=== PATIENT | female | born 2000 | race Caucasian/White ===

== ENCOUNTER 2019-11-09 22:01 | Emergency (ER) | payer MEDICAID ==
[~2019-11-09] VITALS: Ht 165.1 cm; Wt 52.3 kg
[2019-11-09 22:13] VITALS: BP 112/57; Ht 165.1 cm; Wt 52.3 kg
[2019-11-09] MEDS ORDERED: ZOLOFT50 MG PO (22:15)
[2019-11-09 22:33] LABS: BASOPHILS 0.2 % (0-2); EOSINOPHILS 0.3 % (0-7); HEMATOCRIT 38.7 % (36.0-48.0); HEMOGLOBIN 12.6 g/dL (12-16); IMMATURE GRANULOCYTES 0.2 % (0-5); MCH 25.4 pg (26.0-34.0); MCHC 32.6 g/dL (31.0-37.0); MEAN PLATELET VOLUME 10.4 fL (7.4-10.4); MONOCYTES 7.4 % (2-11); NEUTROPHILS 77.9 % (40-80); PLATELET COUNT 259 10x3/uL (130-400); RBC 4.96 10x6/uL (4.00-5.40); RDW 15.7 % (11.5-14.5)
[2019-11-09 22:37] LABS: CALC OSMOLALITY 269 mosm/kg (275-300); CALCIUM 9.2 mg/dL (8.5-10.1); CARBON DIOXIDE 25.4 mmol/L (21.0-32.0); CHLORIDE - SERUM 101 mmol/L (98-107); GLUCOSE 106 mg/dL (74-106); POTASSIUM - SERUM 3.8 mmol/L (3.5-5.1); SODIUM 135 mmol/L (136-145); UREA NITROGEN 13 mg/dL (7-18); eGFR NON AFRICAN AMERICAN 75 mL/min (90-120)
[2019-11-09 22:38] LABS: BILIRUBIN NEGATIVE (NEGATIVE); GLUCOSE NEGATIVE (NEGATIVE); KETONE NEGATIVE (NEGATIVE); NITRITE NEGATIVE (NEGATIVE); SPECIFIC GRAVITY 1.025 (1.005-1.020); UROBILINOGEN NORMAL (NORMAL)
[2019-11-09 22:41] LABS: HCG URINE NEGATIVE (NEGATIVE)
[2019-11-09 22:46] LABS: ALBUMIN 4.2 g/dL (3.4-5.0); ALKALINE PHOSPHATASE 76 U/L (30-120); ALT (SGPT) 22 U/L (10-68); AMYLASE - SERUM 52 U/L (25-115); BILIRUBIN - TOTAL 0.46 mg/dL (0.2-1.3); LIPASE 100 U/L (73-393); PROTEIN - SERUM 8.2 g/dL (6.4-8.2)
[2019-11-09 22:48] LABS: TROPONIN-I < 0.017 ng/mL (0.000-0.060)
[2019-11-09] MEDS ORDERED: ZOFRAN8 MG PO (23:10)
== END 2019-11-09 23:46 | disposition home or self-care (01) ==
LOC: D.ER 22:01
PROVIDERS: Emergency Medicine
DX: K52.9 Noninfective gastroenteritis and colitis, unspecified (principal); J45.909 Unspecified asthma, uncomplicated; R11.2 Nausea with vomiting, unspecified; R42 Dizziness and giddiness; R53.1 Weakness

== ENCOUNTER 2020-09-21 20:13 | Emergency (ER) | payer MEDICAID ==
[~2020-09-21] VITALS: Ht 165.1 cm; Wt 59.1 kg
[~2020-09-21 20:13] MED LIST: ZOFRAN8 MG PO; ZOLOFT50 MG PO
[2020-09-21 20:19] VITALS: Ht 165.1 cm; Wt 59.1 kg
[2020-09-21 20:47] LABS: BASOPHILS 0.1 % (0-2); EOSINOPHILS 0.3 % (0-7); HEMATOCRIT 38.6 % (36.0-48.0); HEMOGLOBIN 13.5 g/dL (12-16); IMMATURE GRANULOCYTES 0.1 % (0-5); LYMPHOCYTE ABS# 1.18 10x3/uL (1.18-3.74); LYMPHOCYTES 17.3 % (15-50); MCH 28.4 pg (26.0-34.0); MCV 81.3 fL (80.0-100.0); MEAN PLATELET VOLUME 10.1 fL (7.4-10.4); NEUTROPHIL ABS# 5.12 10x3/uL (1.56-6.13); NEUTROPHILS 75.2 % (40-80); PLATELET COUNT 245 10x3/uL (130-400); RBC 4.75 10x6/uL (4.00-5.40); RDW 12.8 % (11.5-14.5); WBC 6.8 10x3/uL (4.8-10.8)
[2020-09-21 20:49] LABS: BILIRUBIN NEGATIVE (NEGATIVE); KETONE NEGATIVE (NEGATIVE); NITRITE NEGATIVE (NEGATIVE); UROBILINOGEN 4 mg/dL (< 2)
[2020-09-21 20:49] LABS: HCG URINE NEGATIVE (NEGATIVE)
[2020-09-21 20:55] LABS: CALC OSMOLALITY 273 mosm/kg (275-300); CARBON DIOXIDE 26.2 mmol/L (21.0-32.0); CHLORIDE - SERUM 102 mmol/L (98-107); CREATININE - SERUM 0.7 mg/dL (0.6-1.3); GLUCOSE 114 mg/dL (74-106); POTASSIUM - SERUM 3.6 mmol/L (3.5-5.1); SODIUM 137 mmol/L (136-145); UREA NITROGEN 9 mg/dL (7-18); eGFR NON AFRICAN AMERICAN > 90 mL/min (90-120)
[2020-09-21 21:04] LABS: ALBUMIN 3.9 g/dL (3.4-5.0); ALKALINE PHOSPHATASE 74 U/L (30-120); ALT (SGPT) 19 U/L (10-68); AMYLASE - SERUM 46 U/L (25-115); BILIRUBIN - TOTAL 0.85 mg/dL (0.2-1.3); LIPASE 55 U/L (73-393); PROTEIN - SERUM 7.5 g/dL (6.4-8.2); TROPONIN-I < 0.017 ng/mL (0.000-0.060)
[2020-09-21] MEDS ORDERED: BENTYL 20 MG TA20 MG PO (23:20)
[2020-09-22] MEDS ORDERED: ZOFRAN ODT4 MG/UDTAB PO (00:14)
[2020-09-22 00:25] VITALS: BP 132/76
[2020-09-23] MEDS ORDERED: ZOFRAN ODT4 MG/UDTAB PO (07:07)
[2020-09-23] MEDS ORDERED: PHENERGAN50 MG RC (07:07)
[2020-09-23] MEDS ORDERED: REGLAN10 MG PO (07:07)
[2020-09-23] MEDS ORDERED: OMEPRAZOLE20 M1 PO (07:11)
== END 2020-09-22 00:25 | disposition home or self-care (01) ==
LOC: D.ER 20:13
PROVIDERS: Emergency Medicine
DX: R11.2 Nausea with vomiting, unspecified (principal); K58.9 Irritable bowel syndrome, unspecified; R10.9 Unspecified abdominal pain; J45.909 Unspecified asthma, uncomplicated

== ENCOUNTER 2020-09-23 06:43 | Emergency (ER) | payer MEDICAID ==
[~2020-09-23] VITALS: Ht 165.1 cm; Wt 59.1 kg
[~2020-09-23 06:43] MED LIST changes: +BENTYL 20 MG TA20 MG PO; +ZOFRAN ODT4 MG/UDTAB PO
[2020-09-23 06:48] VITALS: Ht 165.1 cm; Wt 59.1 kg
[2020-09-23] MEDS ORDERED: ZOFRAN ODT4 MG/UDTAB PO (07:07)
[2020-09-23] MEDS ORDERED: PHENERGAN50 MG RC (07:07)
[2020-09-23] MEDS ORDERED: REGLAN10 MG PO (07:07)
[2020-09-23] MEDS ORDERED: OMEPRAZOLE20 M1 PO (07:11)
[2020-09-23 08:04] VITALS: BP 137/78
== END 2020-09-23 08:05 | disposition home or self-care (01) ==
LOC: D.ER 06:43
DX: R11.2 Nausea with vomiting, unspecified (principal); R10.9 Unspecified abdominal pain